=== PATIENT | female | born 1980 | race Two or more races ===

== ENCOUNTER 2020-10-14 04:48 | Emergency (ER) | payer BC, OTHER ==
[~2020-10-14] VITALS: Ht 152.4 cm; Wt 84.8 kg
[2020-10-14 07:25] LABS: Basophils # (auto) 0 10 ^3/uL (0-0.2); Basophils % (auto) 0.9 % (0.0-2.0); Eosinophils # (auto) 0 10 ^3/uL (0-0.8); Hematocrit 34.4 % (36.0-46.0); Hemoglobin 11.5 g/dL (12.2-16.2); Lymphocytes # (auto) 1.6 10 ^3/uL (0.4-5.4); Lymphocytes % (auto) 29.3 % (10.0-50.0); Mean Corpuscular Hemoglobin 29.1 pg (28.0-32.0); Mean Corpuscular Hgb Conc. 33.4 g/dL (32.0-36.0); Mean Corpuscular Volume 87.2 fL (80.0-100.0); Monocytes # (auto) 0.5 10 ^3/uL (0-1.3); Monocytes % (auto) 9.9 % (0.0-12.0); Neutrophils # (auto) 3.2 10 ^3/uL (1.6-8.6); Neutrophils % (auto) 59.9 % (37.0-80.0); Red Blood Cells 3.94 10^6/uL (4.0-5.20); Red Cell Distribution Width 15.9 % (11.8-14.3); White Blood Cell 5.3 10^3/uL (4.4-10.8)
[2020-10-14 07:50] LABS: Calcium 8.6 mg/dL (8.5-10.1); Potassium 4.1 mmol/L (3.5-5.1)
[2020-10-14 07:55] LABS: BUN/Creatinine Ratio 18.1; Bilirubin, Total 0.1 mg/dL (0.2-1.0); Total Protein 7.4 g/dL (6.4-8.2)
[2020-10-14 08:38] LABS: Urine Bacteria NONE SEEN /hpf (None Seen); Urine Blood 1+ /uL (Negative); Urine Mucus FEW (None Seen); Urine Specific Gravity 1.036 (1.001-1.035)
[2020-10-14 08:41] LABS: Urine WBC 1 /hpf (0 - 5)
[2020-10-14] MEDS ORDERED: HYDROcodone-ACET 5/325MG TAB PO ONE (09:00)
[2020-10-14 11:37] VITALS: BP 135/80
== END 2020-10-14 11:41 | disposition home or self-care (01) ==
LOC: ER 04:48
DX: N83.291 Other ovarian cyst, right side (principal); R10.32 Left lower quadrant pain; Z90.49 Acquired absence of other specified parts of digestive tract; Z98.890 Other specified postprocedural states
CPT/HCPCS: 36415; 74176; 76830; 76856; 80053; 81001; 83690; 85025